=== PATIENT | female | born 1970 | race Caucasian/White ===

== ENCOUNTER 2018-09-09 10:00 | Inpatient (IN) | payer OTHER ==
[2018-09-09] MEDS ORDERED: ZOLPIDEM 5 MG TAB PO (12:30)
[2018-09-09] MEDS ORDERED: ACETAMINOPHEN 325 MG TAB PO (12:30)
[2018-09-09] MEDS ORDERED: HYDROCODONE/APAP (5/325) TAB PO (12:30)
[2018-09-09] MEDS ORDERED: NACL 0.9% 3 ML SYG IV (12:30)
[2018-09-09] MEDS ORDERED: ONDANSETRON 4 MG INJ IV (12:30)
[2018-09-09] MEDS ORDERED: ALPRAZOLAM 0.25 MG TAB PO (13:00)
[2018-09-09] MEDS: morphine 2 MG INJ IV ×2 (13:06→18:39)
[2018-09-09] MEDS: predniSONE 5 MG TAB PO (14:25)
[2018-09-09] MEDS: 1/2 NS + KCL 20 MEQ 1,000 ML IV ×3 (14:26→23:24)
[2018-09-09] MEDS ORDERED: NYSTATIN 15 GM CR TOP (15:30)
[2018-09-09] MEDS: TACROLIMUS 1 MG CAP PO ×2 (16:08→22:09)
[2018-09-09 16:43] LABS: ANION GAP 5 (5-13); BLOOD UREA NITROGEN 7 mg/dl (7-20); CALCIUM 9.9 mg/dl (8.4-10.2); CARBON DIOXIDE 25 mmol/L (21-31); CHLORIDE 109 mmol/L (97-110); CREATININE 0.71 mg/dl (0.44-1.00); Estimated GFR > 60 mL/min (>60); GLUCOSE 107 mg/dl (70-220); POTASSIUM 3.7 mmol/L (3.5-5.1); SODIUM 139 mmol/L (135-144)
[2018-09-09] MEDS: NA BICARBONATE 650 MG TAB PO (22:02)
[2018-09-09] MEDS ORDERED: HYDROCODONE/APAP (10/325) TAB PO (23:00)
[2018-09-09] MEDS: morphine 4 MG/ML VIAL IV (23:18)
[2018-09-10 05:49] LABS: ADD MAN DIFF? NO
[2018-09-10 06:03] LABS: WHITE BLOOD COUNT 4.3 10^3/ul (4.8-10.8)
[2018-09-10 06:03] LABS: BASOPHILS % 0.7 % (0.0-2.0); EOSINOPHILS # 0.1 10^3/ul (0.0-0.5); EOSINOPHILS % 1.9 % (0.0-7.0); HEMATOCRIT 33.8 % (37.0-47.0); HEMOGLOBIN 10.8 g/dl (12.0-16.0); LYMPHOCYTES # 1.8 10^3/ul (0.8-2.9); LYMPHOCYTES % 41.3 % (15.0-51.0); MEAN CORPUSCULAR HEMOGLOBIN 30.3 pg (29.0-33.0); MEAN CORPUSCULAR VOLUME 94.9 fl (82.0-101.0); MEAN PLATELET VOLUME 11.8 fl (7.4-10.4); MONOCYTE # 0.3 10^3/ul (0.3-0.9); MONOCYTES % 6.6 % (0.0-11.0); NEUTROPHIL # 2.1 10^3/ul (1.6-7.5); NEUTROPHILS % 49.3 % (39.0-77.0); PLATELET COUNT 159 10^3/UL (140-415); RED BLOOD COUNT 3.56 10^6/ul (4.20-5.40); RED CELL DISTRIBUTION WIDTH 12.6 % (11.5-14.5)
[2018-09-10 06:18] LABS: PROTIME 12.3 Sec (11.9-14.9)
[2018-09-10 06:22] LABS: ALANINE AMINOTRANSFERASE 30 IU/L (13-69); ALBUMIN 2.9 g/dl (3.3-4.9); ALBUMIN/GLOBULIN RATIO 1.11; ALKALINE PHOSPHATASE 91 IU/L (42-121); ANION GAP 4 (5-13); ASPARTATE AMINO TRANSFERASE 29 IU/L (15-46); BILIRUBIN,INDIRECT 0.4 mg/dl (0-1.1); BILIRUBIN,TOTAL 0.4 mg/dl (0.2-1.3); BLOOD UREA NITROGEN 6 mg/dl (7-20); CALCIUM 9.9 mg/dl (8.4-10.2); CARBON DIOXIDE 26 mmol/L (21-31); CHLORIDE 109 mmol/L (97-110); Estimated GFR > 60 mL/min (>60); GLUCOSE 90 mg/dl (70-220); MAGNESIUM 1.5 mg/dl (1.7-2.5); PHOSPHORUS 3.4 mg/dl (2.5-4.9); POTASSIUM 4.8 mmol/L (3.5-5.1); SODIUM 139 mmol/L (135-144); TOTAL PROTEIN 5.5 g/dl (6.1-8.1)
[2018-09-10 06:30] LABS: AMYLASE 35 U/L (11-123)
[2018-09-10 06:30] LABS: LIPASE 42 U/L (23-300)
[2018-09-10 06:40] LABS: HEMOGLOBIN A1C 5.5 % (0-5.9)
[2018-09-10] MEDS: TACROLIMUS 1 MG CAP PO ×2 (09:08→21:04)
[2018-09-10] MEDS: predniSONE 5 MG TAB PO (09:08)
[2018-09-10] MEDS: FERROUS SULFATE (EC) 325 MG TAB PO (09:09)
[2018-09-10] MEDS: NA BICARBONATE 650 MG TAB PO ×2 (09:09→21:04)
[2018-09-10] MEDS: morphine 4 MG/ML VIAL IV ×2 (09:24→21:11)
[2018-09-10] MEDS: 1/2 NS + KCL 20 MEQ 1,000 ML IV (10:21)
[2018-09-10] MEDS: MAGNESIUM SULFATE 3 GM in DEXTROSE 5% 100 ML IVPB (13:09)
[2018-09-11] MEDS: 1/2 NS + KCL 20 MEQ 1,000 ML IV ×2 (01:24→11:20)
[2018-09-11] MEDS: NA BICARBONATE 650 MG TAB PO (09:10)
[2018-09-11] MEDS: predniSONE 5 MG TAB PO (09:10)
[2018-09-11] MEDS: TACROLIMUS 1 MG CAP PO (09:10)
[2018-09-11] MEDS: FERROUS SULFATE (EC) 325 MG TAB PO (09:11)
[2018-09-11] MEDS: CHOLESTYRAMINE (LIGHT) 4 GM PACKET PO (09:11)
[2018-09-11] MEDS: morphine 4 MG/ML VIAL IV (09:21)
== END 2018-09-11 13:47 | disposition home or self-care (01) | DRG 439 ==
LOC: MS1 10:00
DX: K86.89 Other specified diseases of pancreas (principal); E87.2 Acidosis; Z94.0 Kidney transplant status; G81.94 Hemiplegia, unspecified affecting left nondominant side; K91.2 Postsurgical malabsorption, not elsewhere classified; D64.9 Anemia, unspecified; N18.9 Chronic kidney disease, unspecified; Z93.2 Ileostomy status
CPT/HCPCS: 80048; 80053; 82150; 83036; 83690; 83735; 84100; 85025; 85610